=== PATIENT | male | born 1990 | race Caucasian/White ===

== ENCOUNTER 2016-06-20 07:05 | Day surgery (SDC) | payer OTHER ==
[~2016-06-20 07:05] MED LIST: ASCORBIC ACID500 M2 PO; B COMPLEX & B121 TAB PO; COD LIVER OIL1 CAP PO; FOLIC ACID 1MG T1 MG PO; GARLIC500 M1 PO; GRAPE SEED EXTR50 M1 PO; GREEN TEA EXTR250 MG PO; MELATONIN0.3 MG PO; MULTIVITAMIN1 TA2 PO; OLIVE LEAF EXT500 MG PO; OMEGA 3 120 MG-1 CAP PO; UNKNOWN B/P MED PO; VITAMIN A8000 IU PO; VITAMIN E100 I2 PO
--- NOTE | 2016-06-20 08:15 | Operative Note ---
Endoscopy Report Date: 06/20/16 Preoperative diagnosis: Rectal bleeding Family history colon cancer Procedure Type of procedure: Indications:Patient is a pleasant 25-year-old white male. He was referred from Dr. Adrien Suarez for colonoscopy. Patient has never had previous colonoscopy. Patient's grandfather was diagnosed with colon cancer in his late 20s. A couple of months prior to presentation the patient developed some gross rectal bleeding. This initially was associated with pain but then he developed some painless rectal bleeding. It had resolved. Given the history and family history plan was made to proceed with colonoscopy. Procedure: Total colonoscopy to terminal ileum with polypectomy 2 Consent was obtained and patient was taken to same-day surgery endoscopy procedure room. He was positioned in a lateral decubitus position. Adequate intravenous sedation was achieved with titration of 7 mg Versed and 150 g fentanyl for the duration of the procedure. Variable stiffness Olympus colonoscope was inserted via the anus and advanced to the cecum without any difficulty. Colonic preparation was good. Within the cecum the ileocecal valve and appendiceal orifice were clearly identified. Colonoscope was advanced into the terminal ileum which appeared grossly normal. Within the cecum there was a diminutive polyp removed with cold snare. Colonoscope was withdrawn through the colon with careful surveillance carried out. Proximal 20 cm from the anal verge of the rectosigmoid region there was an additional diminutive polyp removed with cold snare. Retroflexion within the rectum revealed internal hemorrhoids. Findings 1. Polyp 2. Internal Hemorrhoids Recommendations 1. Follow up on pathology Follow-Up Follow-Up: Rectal bleeding likely from internal hemorrhoids. He is to follow-up in the office to review the pathology and likely plan for repeat colonoscopy in 5 years given the polyps and family history. at [id number]
[2016-06-20 09:47] VITALS: BP 99/51
== END 2016-06-20 08:53 | disposition home or self-care (01) ==
LOC: SDC 07:05
PROVIDERS: Surgery
PROC: 0DBN8ZX Excision of Sigmoid Colon, Via Natural or Artificial Opening Endoscopic, Diagnostic (ICD-10-PCS; 2016-06-20)
PROC: 0DBH8ZX Excision of Cecum, Via Natural or Artificial Opening Endoscopic, Diagnostic (ICD-10-PCS; principal; 2016-06-20 07:30)
DX: K62.5 Hemorrhage of anus and rectum (principal); Z80.0 Family history of malignant neoplasm of digestive organs; D12.0 Benign neoplasm of cecum; D12.7 Benign neoplasm of rectosigmoid junction